=== PATIENT | male | born 1990 | race Caucasian/White ===

== ENCOUNTER 2016-10-11 01:00 | Emergency (ER) | payer SELFPAY ==
[~2016-10-11] VITALS: Ht 177.8 cm; Wt 80.0 kg
[2016-10-11] MEDS ORDERED: PREDNISONE 20MG TABLET PO ONE (02:15)
[2016-10-11] MEDS ORDERED: IPRATROPIUM/ALBUTEROL 0.5-3(2.5)MG/3ML NEB HHN ONE (02:15)
[2016-10-11 02:58] VITALS: BP 146/78
== END 2016-10-11 03:08 | disposition home or self-care (01) ==
LOC: ER 02:46
DX: J45.901 Unspecified asthma with (acute) exacerbation (principal); K21.9 Gastro-esophageal reflux disease without esophagitis
CPT/HCPCS: 94640; 99283; J7512; Z7610; J7620